=== PATIENT | female | born 1935 | race Caucasian/White ===

== ENCOUNTER 2018-01-02 11:37 | Observation (INO) | payer MEDICARE, OTHER ==
[~2018-01-02] VITALS: Ht 162.6 cm; Wt 61.3 kg
[2018-01-02 11:59] VITALS: BP 102/58; PULSE 70; RESP 22; TEMP 99.9; O2SAT 97
--- NOTE | 2018-01-02 12:52 | PD ---
HPI Chief Complaint: Syncope/Near-Syncope Time Seen by Provider: 12:31 Travel History International Travel<30 days: No Contact w/Intl Traveler<30days: No Traveled to known affect area: No History of Present Illness HPI 82-year-old female presents with her daughter for evaluation of syncopal event. The patient has dementia, is nonverbal and therefore the daughter provides the history. The patient was sitting on her couch this morning eating her breakfast when she passed out while sitting. There was no seizure activity. She reports that the patient has been coughing since then. The cough is nonproductive. Symptoms are moderate with no aggravating or relieving factors. She has otherwise been healthy with no recent illness. She has had no nonverbal complaints of pain that the daughter is aware of. She has had a normal energy level and a normal appetite. She has had no vomiting or diarrhea. The daughter reports history of dementia, bradycardia, past surgical history of cholecystectomy and hysterectomy. Dr. Kendrick is her primary care physician. She has no other complaints at this time. [facility] Past Medical History Narrative Medical Dementia, bradycardia Social History Alcohol Use: No Tobacco Use: No Substance Use: No Allergies-Medications (Allergen,Severity, Reaction): Coded Allergies: No Known Allergies (Unverified , 01/02/18) Review of Systems ROS Limitations: Other: (Dementia) Except as stated in HPI: all other systems reviewed are Neg Physical Exam Exam Limitations: Other: (Dementia, nonverbal) Narrative GENERAL: Pleasant well-developed well-nourished female in no acute distress. Rectal temperature is 100.2. SKIN: Warm and dry. HEAD: Atraumatic. Normocephalic. EYES: Pupils equal and round. No scleral icterus. No injection or drainage. ENT: No nasal bleeding or discharge. Mucous membranes pink and moist. NECK: Trachea midline. No JVD. CARDIOVASCULAR: Regular rate and rhythm. No murmur appreciated. RESPIRATORY: No accessory muscle use. Clear to auscultation. Breath sounds equal bilaterally. No crackles no wheezing. GASTROINTESTINAL: Abdomen soft, seems to grimace some with palpation of the lower abdomen without guarding. MUSCULOSKELETAL: No obvious deformities. No clubbing. No cyanosis. No edema. NEUROLOGICAL: Awake and alert. No obvious cranial nerve deficits. Motor grossly within normal limits. Data Data Last Documented VS Vital Signs Date Time Temp Pulse Resp B/P (MAP) Pulse Ox O2 Delivery O2 Flow Rate FiO2 01/02/18 11:59 99.9 70 22 102/58 (73) 97 Orders Orders Complete Blood Count With Diff (01/02/18 12:04) Comprehensive Metabolic Panel (01/02/18 12:04) Sepsis Workup Initiated (01/02/18 ) Lactic Acid Sepsis Protocol (01/02/18 12:48) Magnesium (Mg) (01/02/18 12:48) Lipase (01/02/18 12:48) Ckmb (Isoenzyme) Profile (01/02/18 12:48) Troponin I (01/02/18 12:48) Urinalysis - C+S If Indicated (01/02/18 12:48) Blood Culture (01/02/18 12:48) Chest, Single Ap (01/02/18 12:48) Ecg Monitoring (01/02/18 12:48) Iv Access Insert/Monitor (01/02/18 12:48) Oximetry (01/02/18 12:48) Oxygen Administration (01/02/18 12:48) Ct Abd/Pel W Iv Contrast(Rout) (01/02/18 12:48) Sodium Chlor 0.9% 1000 Ml Inj (Ns 1000 M (01/02/18 14:12) Electrocardiogram (01/02/18 13:34) Iohexol 350 Inj (Omnipaque 350 Inj) (01/02/18 17:15) Admit Order (Ed Use Only) (01/02/18 17:53) Labs Laboratory Tests Test 01/02/18 13:30 01/02/18 13:35 White Blood Count 9.3 TH/MM3 Red Blood Count 4.17 MIL/MM3 Hemoglobin 12.2 GM/DL Hematocrit 36.4 % Mean Corpuscular Volume 87.2 FL Mean Corpuscular Hemoglobin 29.4 PG Mean Corpuscular Hemoglobin Concent 33.7 % Red Cell Distribution Width 12.5 % Platelet Count 209 TH/MM3 Mean Platelet Volume 8.4 FL Neutrophils (%) (Auto) 63.9 % Lymphocytes (%) (Auto) 25.3 % Monocytes (%) (Auto) 9.8 % Eosinophils (%) (Auto) 0.5 % Basophils (%) (Auto) 0.5 % Neutrophils # (Auto) 6.0 TH/MM3 Lymphocytes # (Auto) 2.4 TH/MM3 Monocytes # (Auto) 0.9 TH/MM3 Eosinophils # (Auto) 0.0 TH/MM3 Basophils # (Auto) 0.0 TH/MM3 CBC Comment DIFF FINAL Differential Comment Blood Urea Nitrogen 13 MG/DL Creatinine 0.84 MG/DL Random Glucose 100 MG/DL Total Protein 6.7 GM/DL Albumin 3.3 GM/DL Calcium Level 8.3 MG/DL Alkaline Phosphatase 68 U/L Aspartate Amino Transf (AST/SGOT) 15 U/L Alanine Aminotransferase (ALT/SGPT) 21 U/L Total Bilirubin 0.2 MG/DL Sodium Level 142 MEQ/L Potassium Level 4.2 MEQ/L Chloride Level 109 MEQ/L Carbon Dioxide Level 26.9 MEQ/L Anion Gap 6 MEQ/L Estimat Glomerular Filtration Rate 65 ML/MIN Lactic Acid Level 1.1 mmol/L Magnesium Level 2.2 MG/DL Total Creatine Kinase 67 U/L Troponin I LESS THAN 0.02 NG/ML Lipase 127 U/L Urine Color YELLOW Urine Turbidity CLEAR Urine pH 5.5 Urine Specific [place] 1.008 Urine Protein NEG mg/dL Urine Glucose (UA) NEG mg/dL Urine Ketones NEG mg/dL Urine Occult Blood SMALL Urine Nitrite NEG Urine Bilirubin NEG Urine Urobilinogen LESS THAN 2.0 MG/DL Urine Leukocyte Esterase NEG Urine RBC LESS THAN 1 /hpf Urine WBC LESS THAN 1 /hpf Urine Squamous Epithelial Cells <1 /hpf Urine Mucus FEW /lpf Microscopic Urinalysis Comment CATH-CULT NOT IND MDM Medical Decision Making Medical Screen Exam Complete: Yes Emergency Medical Condition: Yes Medical Record Reviewed: Yes Differential Diagnosis Pneumonia, sepsis, UTI, syncope, hypoglycemia, electrolyte abnormality, arrhythmia, acute coronary syndrome, dehydration Narrative Course The patient was placed on ECG monitoring pulse oximetry. A 12-lead EKG was obtained. Lab work, chest x-ray, urinalysis, CT abdomen and pelvis have been ordered. ct abd pelvis 1. No acute abnormality. 2. Diverticulosis of the colon and duodenum. 3. Prior cholecystectomy. CBC is unremarkable. CMP is unremarkable. Magnesium is within normal limits. CK and troponin are within normal limits. Lactic acid is 1.1. Chest x-ray is normal. EKG reveals sinus rhythm. Urinalysis reveals small blood otherwise normal at this point time the plan is to admit the patient for observation overnight given her age, history of syncope. The patient's daughter is agreeable. Diagnosis Primary Impression: Syncope Admitting Information Admitting Physician Requests: Observation Jp Patel Jan 02, 2018 12:52
--- NOTE | 2018-01-02 13:23 | RADRPT ---
EXAM DATE: 01/02/2018 1:09 PM EDT AGE/SEX: 82 years / Female INDICATIONS: Passed out at home per her daughter. CLINICAL DATA: This is the patient's initial encounter. Patient reports that signs and symptoms have been present for 1 day and indicates a pain score of Nonresponsive. MEDICAL/SURGICAL HISTORY: . dementia None. COMPARISON: No prior exams available for comparison. FINDINGS: A single AP view of the chest demonstrates the lungs to be symmetrically aerated without evidence of mass, infiltrate or effusion. The cardiomediastinal contours are unremarkable. Osseous structures a re intact. CONCLUSION: No evidence of acute cardiopulmonary process. Electronically signed by: Jamari Majano MD 01/02/2018 1:22 PM EDT
[2018-01-02] MEDS ORDERED: SODIUM CHLOR 0.9% 1000 ML INJ 1,000 ML IV SCH (14:12)
[2018-01-02 14:34] LABS: BASOPHIL % 0.5 % (0.0-2.0); EOSINOPHIL % 0.5 % (0.0-4.0); HEMATOCRIT 36.4 % (35.0-46.0); HEMOGLOBIN 12.2 GM/DL (11.6-15.3); LYMPH % 25.3 % (9.0-44.0); LYMPHOCYTE # 2.4 TH/MM3 (1.0-4.8); MEAN CELL VOLUME 87.2 FL (80.0-100.0); MEAN CORPUSCULAR HEMOGLOBIN 29.4 PG (27.0-34.0); MEAN CORPUSCULAR HGB CONC 33.7 % (32.0-36.0); MEAN PLATELET VOLUME 8.4 FL (7.0-11.0); MONO % 9.8 % (0.0-8.0); MONOCYTE # 0.9 TH/MM3 (0-0.9); NEUT % 63.9 % (16.0-70.0); PLATELET COUNT 209 TH/MM3 (150-450); RED BLOOD COUNT 4.17 MIL/MM3 (4.00-5.30); RED CELL DISTRIBUTION WIDTH 12.5 % (11.6-17.2); WHITE BLOOD COUNT 9.3 TH/MM3 (4.0-11.0)
[2018-01-02 14:39] LABS: BILIRUBIN, URINE NEG (NEG); BLOOD, URINE SMALL (NEG); GLUCOSE,URINE NEG (NEG); KETONE, URINE NEG (NEG); MUCUS URINE FEW /lpf (OCC); NITRITE,URINE NEG (NEG); PH, URINE 5.5 (5.0-8.5); SQUAMOUS EPITHELIAL CELL URINE <1 /hpf (0-5); URINE COLOR YELLOW (YELLW/STRAW); URINE LEUKOCYTE ESTERASE NEG (NEG)
[2018-01-02 14:53] LABS: ALKALINE PHOSPHATASE 68 U/L (45-117); TOTAL BILIRUBIN ADULT 0.2 MG/DL (0.2-1.0); TOTAL PROTEIN 6.7 GM/DL (6.4-8.2); TROPONIN I LESS THAN 0.02 NG/ML (0.02-0.05)
[2018-01-02 15:56] LABS: ALBUMIN 3.3 GM/DL (3.4-5.0); ALT (GPT) 21 U/L (10-53); AST (GOT) 15 U/L (15-37); BICARBONATE 26.9 MEQ/L (21.0-32.0); BLOOD UREA NITROGEN 13 MG/DL (7-18); CALCIUM 8.3 MG/DL (8.5-10.1); CHLORIDE 109 MEQ/L (98-107); CREATININE 0.84 MG/DL (0.50-1.00); GLOMERULAR FILTRATION RATE 65 ML/MIN (>89); GLUCOSE,RANDOM 100 MG/DL (74-106); SODIUM (NA) 142 MEQ/L (136-145)
[2018-01-02 15:57] LABS: MAGNESIUM 2.2 MG/DL (1.5-2.5)
[2018-01-02] MEDS ORDERED: IOHEXOL 350 MG/ML 10 ML VIAL (for RAD DIAG) IVCONTRAST ONE (17:15)
--- NOTE | 2018-01-02 17:34 | RADRPT ---
EXAM DATE: 01/02/2018 5:10 PM EDT AGE/SEX: 82 years / Female INDICATIONS: Syncope, cough, fever. CLINICAL DATA: This is the patient's initial encounter. Patient reports that signs and symptoms have been present for 1 day and indicates a pain score of 0/10. MEDICAL/SURGICAL HISTORY: . Dementia. None. ORAL CONTRAST: No oral contrast ingested. RADIATION DOSE: 7.70 CTDI (mGy) COMPARISON: No prior exams available for comparison. TECHNIQUE: Multiple contiguous axial images were obtained through the abdomen and pelvis following b olus infusion of 85 ml Omnipaque 350 (iohexol) nonionic water-soluble contrast as a single exam dos e. No oral contrast ingested. Using automated exposure control and adjustment of the mA and/or kV ac cording to patient size, the radiation dose was kept as low as reasonably achievable to obtain optima l diagnostic quality images. FINDINGS: Lower Lungs: The visualized lower lungs are clear. Liver: The liver has a homogeneous density without space-occupying lesion. There is no dilation of th e biliary tree. The gallbladder surgically absent. Spleen: Homogeneous density without enlargement. Pancreas: Unremarkable without mass or calcification. Kidneys: Normal in size and shape. No evidence of mass or hydronephrosis. Adrenal Glands: Unremarkable. Aorta: The aorta and proximal iliac vessels are grossly unremarkable without aneurysmal dilation. Bowel/Mesentery: There is a very large duodenal diverticulum involving the second or third portion o f the duodenum. Numerous colonic diverticuli most pronounced within the sigmoid region. No acute infl ammation. The bowel loops are grossly unremarkable. The cecum and sigmoid colon have a normal configu ration. Abdominal Wall: Intact. Retroperitoneum: No evidence of adenopathy in the retrocrural, para-aortic, or deep pelvic regions. Bladder: Contours are smooth. Reproductive Organs: No abnormal masses or calcifications seen. Inguinal: The inguinal region is unremarkable without evidence of adenopathy. Bony Structures: Diffuse degenerative changes of the lumbar spine. A grade 1 anterolisthesis of L5 on S1. CONCLUSION: 1. No acute abnormality. 2. Diverticulosis of the colon and duodenum. 3. Prior cholecystectomy. Electronically signed by: Misael Montes MD 01/02/2018 5:33 PM EDT
--- NOTE | 2018-01-02 18:08 | HHI.HP ---
[facility] Service Family Medicine Primary Care Physician Unknown Admission Diagnosis Syncope Diagnoses: International Travel<30 Days: No Contact w/Intl Traveler<30days: No Known Affected Area: No History of Present Illness Patient is an 82 year old female who presents to the [facility] ED for evaluation of a syncopal episode with loss of consciousness x1. Patient has dementia and has been non-verbal for the past 5 years. She is cared for by her daughter, who is at bedside to provide the history. At approximately 9:40 a.m. today, the patient was eating breakfast on the couch. The daughter turned her back on the patient, heard the patient's plate drop to the floor, the daughter turned back around and found her mother laying on the couch slouched to the side. She then noted her mother's eyes rolling into the back of her head, followed by the patient "fainting." Per daughter, the patient lost consciousness for 2 minutes. When she woke up she seemed disoriented. Daughter denies seizure like activity such as shaking. She denies tongue biting. Patient has urinary and bowel incontinence at baseline but her diaper was soiled following episode. The patient also started coughing and has had little energy following the episode. The cough is non-productive. She usually "runs around the entire house" but today she just wanted to lay and rest. "She is just not acting herself." Patient has been shivering today. Her highest recorded temperature since arrival in ED is 99.9F. Daughter denies sick contacts. Of note, patient was diagnosed with dementia at 55 years old. She has been non- verbal for the past five years. She communicates via "her facial expressions." Patient eats "mushy food only." (Stormy Alvarado MD R1) Review of Systems ROS Limitations: Speech Impaired (Non-verbal; ROS per daughter ) Constitutional: COMPLAINS OF: Fatigue, Fever, Weight loss (30 lbs over the past year ), Chills, Dizziness, DENIES: Change in appetite Ears, nose, mouth, throat: DENIES: Nasal discharge, Throat pain, Running Nose Respiratory: COMPLAINS OF: Cough, Shortness of breath, DENIES: Sputum production Cardiovascular: DENIES: Chest pain, Palpitations Gastrointestinal: COMPLAINS OF: Constipation, DENIES: Abdominal pain, Black stools, Bloody stools, Diarrhea, Nausea, Vomiting Genitourinary: COMPLAINS OF: Urinary incontinence, DENIES: Abnormal vaginal bleeding Musculoskeletal: DENIES: Joint pain, Muscle aches Integumentary: DENIES: Rash Neurologic: DENIES: Headache Psychiatric: COMPLAINS OF: Agitation (Stormy Alvarado MD R1) Past Family Social History Past Medical History Bradycardia Dementia TIA/Stroke Past Surgical History Cholecystectomy Total hysterectomy Reported Medications None. (Stormy Alvarado MD R1) Allergies: Coded Allergies: No Known Allergies (Unverified , 01/02/18) Active Ordered Medications Current Medications Medications (Trade) Dose Ordered Sig/Pradeep Route Start Time Stop Time Status Last Admin Sodium Chloride 1,000 ml @ 100 mls/hr Q10H IV 01/02/18 19:12 UNV (Tylenol) 650 mg Q4H PRN PO 01/02/18 19:15 UNV (Lovenox Inj) 40 mg Q24H SQ 01/02/18 19:15 UNV (Tiffany-Colace) 1 tab BID PO 01/02/18 21:00 UNV (Milk Of Magnesia Liq) 30 ml Q12H PRN PO 01/02/18 19:15 UNV (Senokot) 17.2 mg Q12H PRN PO 01/02/18 19:15 UNV Family History Sister - Parkinson's, at 40 Sister - Brain aneurysm, in 40s Brothers (twins) - Blood cancers; at 23 Mother - breast cancer, in early 30s Social History Lives with daughter and great-niece. 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 Tobacco: 4 packs cigarettes/day; quit almost 30 years ago. Substance Use: Denies. (Stormy Alvarado MD R1) Physical Exam Vital Signs Vital Signs Date Time Temp Pulse Resp B/P (MAP) Pulse Ox O2 Delivery O2 Flow Rate FiO2 01/02/18 11:59 99.9 70 22 102/58 (73) 97 Physical Exam GENERAL: This is a well-nourished, well-developed patient, in no apparent distress. SKIN: No rashes, ecchymoses or lesions. Well healed scar over abdomen. Warm and dry. HEAD: Atraumatic. Normocephalic. No temporal or scalp tenderness. EYES: Pupils equal round and reactive. Extraocular motions intact. No scleral icterus. No injection or drainage. ENT: Nose without bleeding, purulent drainage or septal hematoma. Limited visualization of back of throat due to lack of cooperation. Uvula midline. Airway patent. NECK: Trachea midline. No JVD or lymphadenopathy. Supple, nontender, no meningeal signs. CARDIOVASCULAR: Regular rate and rhythm without murmurs, gallops, or rubs. RESPIRATORY: Clear to auscultation. Breath sounds equal bilaterally. No wheezes , rales, or rhonchi. GASTROINTESTINAL: Abdomen soft, non-tender, nondistended. No hepato-splenomegaly , or palpable masses. No guarding. MUSCULOSKELETAL: Extremities without clubbing, cyanosis, or edema. No joint tenderness, effusion, or edema noted. No calf tenderness. NEUROLOGICAL/PSYCH: Awake and alert. Agitated, patient constantly moving around , fidgety. Non-verbal. Facial expressions symmetrical. Non-cooperative for remaining neurological exam. Laboratory Laboratory Tests Test 01/02/18 13:30 01/02/18 13:35 White Blood Count 9.3 Red Blood Count 4.17 Hemoglobin 12.2 Hematocrit 36.4 Mean Corpuscular Volume 87.2 Mean Corpuscular Hemoglobin 29.4 Mean Corpuscular Hemoglobin Concent 33.7 Red Cell Distribution Width 12.5 Platelet Count 209 Mean Platelet Volume 8.4 Neutrophils (%) (Auto) 63.9 Lymphocytes (%) (Auto) 25.3 Monocytes (%) (Auto) 9.8 Eosinophils (%) (Auto) 0.5 Basophils (%) (Auto) 0.5 Neutrophils # (Auto) 6.0 Lymphocytes # (Auto) 2.4 Monocytes # (Auto) 0.9 Eosinophils # (Auto) 0.0 Basophils # (Auto) 0.0 CBC Comment DIFF FINAL Differential Comment Blood Urea Nitrogen 13 Creatinine 0.84 Random Glucose 100 Total Protein 6.7 Albumin 3.3 Calcium Level 8.3 Alkaline Phosphatase 68 Aspartate Amino Transf (AST/SGOT) 15 Alanine Aminotransferase (ALT/SGPT) 21 Total Bilirubin 0.2 Sodium Level 142 Potassium Level 4.2 Chloride Level 109 Carbon Dioxide Level 26.9 Anion Gap 6 Estimat Glomerular Filtration Rate 65 Lactic Acid Level 1.1 Magnesium Level 2.2 Total Creatine Kinase 67 Troponin I LESS THAN 0.02 Lipase 127 Urine Color YELLOW Urine Turbidity CLEAR Urine pH 5.5 Urine Specific [place] 1.008 Urine Protein NEG Urine Glucose (UA) NEG Urine Ketones NEG Urine Occult Blood SMALL Urine Nitrite NEG Urine Bilirubin NEG Urine Urobilinogen LESS THAN 2.0 Urine Leukocyte Esterase NEG Urine RBC LESS THAN 1 Urine WBC LESS THAN 1 Urine Squamous Epithelial Cells <1 Urine Mucus FEW Microscopic Urinalysis Comment CATH-CULT NOT IND Date/Time Source Procedure Growth Status 01/02/18 13:30 Blood Peripheral Aerobic Blood Culture Pending Received 01/02/18 13:30 Blood Peripheral Anaerobic Blood Culture Pending Received (Stormy Alvarado MD R1) Result Diagram: 01/02/18 1330 01/02/18 1330 Imaging Last Impressions Chest X-Ray 01/02/18 1248 Signed Impressions: CONCLUSION: No evidence of acute cardiopulmonary process. Abdomen/Pelvis CT 01/02/18 1248 Signed Impressions: Bony Structures: Diffuse degenerative changes of the lumbar spine. A grade 1 an terolisthesis of L5 on S1. CONCLUSION: 1. No acute abnormality. 2. Diverticulosis of the colon and duodenum. 3. Prior cholecystectomy. (Stormy Alvarado MD R1) Caprini VTE Risk Assessment Caprini VTE Risk Assessment: Mod/High Risk (score >= 2) Caprini Risk Assessment Model Point Value = 1 Point Value = 2 Point Value = 3 Point Value = 5 Age 41-60 Minor surgery BMI > 25 kg/m2 Swollen legs Varicose veins or History of unexplained or recurrent spontaneous Oral contraceptives or hormone replacement Sepsis (< 1 month) Serious lung disease, including pneumonia (< 1 month) Abnormal pulmonary function Acute myocardial infarction Congestive heart failure (< 1 month) History of inflammatory bowel disease Medical patient at bed rest Age 61-74 Arthroscopic surgery Major open surgery (> 45 min) Laparoscopic surgery (> 45 min) Malignancy Confined to bed (> 72 hours) Immobilizing plaster cast Central venous access Age >= 75 History of VTE Family history of VTE Factor V Leiden Prothrombin [id number] Lupus anticoagulant Anticardiolipin antibodies Elevated serum homocysteine Heparin-induced thrombocytopenia Other congenital or acquired thrombophilia Stroke (< 1 month) Elective arthroplasty Hip, pelvis, or leg fracture Acute spinal cord injury (< 1 month) Prophylaxis Regimen Total Risk Factor Score Risk Level Prophylaxis Regimen 0-1 Low Early ambulation 2 Moderate Order ONE of the following: *Sequential Compression Device (SCD) *Heparin 5000 units SQ BID 3-4 Higher Order ONE of the following medications: *Heparin 5000 units SQ TID *Enoxaparin/Lovenox 40 mg SQ daily (WT < 150 kg, CrCl > 30 mL/min) *Enoxaparin/Lovenox 30 mg SQ daily (WT < 150 kg, CrCl > 10-29 mL/min) *Enoxaparin/Lovenox 30 mg SQ BID (WT < 150 kg, CrCl > 30 mL/min) AND/OR *Sequential Compression Device (SCD) 5 or more Highest Order ONE of the following medications: *Heparin 5000 units SQ TID (Preferred with Epidurals) *Enoxaparin/Lovenox 40 mg SQ daily (WT < 150 kg, CrCl > 30 mL/min) *Enoxaparin/Lovenox 30 mg SQ daily (WT < 150 kg, CrCl > 10-29 mL/min) *Enoxaparin/Lovenox 30 mg SQ BID (WT < 150 kg, CrCl > 30 mL/min) AND *Sequential Compression Device (SCD) (Stormy Alvarado MD R1) Assessment and Plan Assessment and Plan Patient is an 82 year old female who presents to the [facility] ED for evaluation of a syncopal episode with loss of consciousness x1. Patient has dementia and has been non-verbal for the past 5 years. Code Status Full Code. Patient unable to make her own decisions. Daughter at bedside is not eldest child, nor does she have power of assistant district attorney. Discussed Condition With GERRY Avalos. Dr. Delaney (Stormy Alvarado MD R1) Problem List: (1) Syncope ICD Codes: R55 - Syncope and collapse Status: Acute Plan: Patient with syncopal episode and LOC today. No history of syncopal episodes. No seizure activity. Differential Diagnosis: * Vaso-vagal versus TIA versus CVA versus seizure Admission Labs: * CBC wnl. * CMP grossly wnl. * Troponin x1 negative. Imaging: * Head CT pending. * MRI Brain pending. * MRA Brain pending. * Carotid US pending. * Chest CXR 01/02: No evidence of acute cardiopulmonary process. * Abdomen/Pelvis CT: No acute abnormality. Diverticulosis of the colon and duodenum. Prior cholecystectomy. Studies: * EKG: Sinus rhythm. * EEG pending. Orders: * Orthostatic blood pressure. * Telemetry. * Vital and Neuro checks q4hrs. Medications: * NS at 100 ml/hr. (2) Dementia ICD Codes: F03.90 - Unspecified dementia without behavioral disturbance Status: Chronic Plan: Patient with history of dementia. She has been non-verbal for the past 5 years. Patient on no home medications. (3) Fluid, Electrolyte, Nutrition and Prophylaxis Status: Acute Plan: Fluid: * NS at 100 ml/hr. Electrolyte: * Monitor and replete as necessary. Nutrition: * NPO pending swallow evaluation. Prophylaxis: * SCDs. * Hold chemical prophylaxis until CT brain results available. (Stormy Alvarado MD R1) Problem List: (1) Syncope ICD Codes: R55 - Syncope and collapse Status: Acute Plan: Patient with syncopal episode and LOC today. No history of syncopal episodes. No seizure activity. Differential Diagnosis: * Vaso-vagal versus TIA versus CVA versus seizure Admission Labs: * CBC wnl. * CMP grossly wnl. * Troponin x1 negative. Imaging: * Head CT pending. * MRI Brain pending. * MRA Brain pending. * Carotid US pending. * Chest CXR 01/02: No evidence of acute cardiopulmonary process. * Abdomen/Pelvis CT: No acute abnormality. Diverticulosis of the colon and duodenum. Prior cholecystectomy. Studies: * EKG: Sinus rhythm. * EEG pending. Orders: * Orthostatic blood pressure. * Telemetry. * Vital and Neuro checks q4hrs. Medications: * NS at 100 ml/hr. (2) Dementia ICD Codes: F03.90 - Unspecified dementia without behavioral disturbance Status: Chronic Plan: Patient with history of dementia. She has been non-verbal for the past 5 years. Patient on no home medications. (3) Fluid, Electrolyte, Nutrition and Prophylaxis Status: Acute Plan: Fluid: * NS at 100 ml/hr. Electrolyte: * Monitor and replete as necessary. Nutrition: * NPO pending swallow evaluation. Prophylaxis: * SCDs. * Hold chemical prophylaxis until CT brain results available. See the residents documentation for details. I saw and evaluated the patient regarding the martinez portions of this evaluation and agree with the residents findings and plans as written. Parts of this note were created using [employer] voice recognition software program. While efforts were made to correct any mistakes made by this software, some mistakes, errors, and omissions may remain in the final note that were not caught when the note was originally created. Plan of care was discussed and agreed upon with the patient as specifically documented in the above note. An opportunity to ask questions with explanation was provided. Patient voiced understanding on all information reviewed and discussed. (Arcenio Ignaico MD) Stormy Alvarado MD R1 Jan 02, 2018 18:08 Arcenio Ignacio MD Jan 04, 2018 11:49
[2018-01-02] MEDS ORDERED: MAGNESIUM HYDROXIDE SUSP 30 ML CUP PO PRN (19:15)
[2018-01-02] MEDS ORDERED: SENNOSIDES 8.6 MG TAB PO PRN (19:15)
[2018-01-02] MEDS ORDERED: ACETAMINOPHEN 325 MG TAB PO PRN (19:15)
[2018-01-02 20:00] VITALS: BP 123/68; PULSE 77; PULSE 78; RESP 18; TEMP 97.8; O2SAT 97
[2018-01-02] MEDS: DOCUSATE SODIUM 50 MG/SENNA 8.6 MG TAB PO SCH (21:00)
[2018-01-02] MEDS ORDERED: ENOXAPARIN SODIUM 40 MG/0.4 ML SYRINGE SQ SCH (21:00)
[2018-01-02] MEDS: SODIUM CHLOR 0.9% 1000 ML INJ 1,000 ML IV SCH (22:08)
--- NOTE | 2018-01-02 23:18 | RADRPT ---
EXAM DATE: 01/02/2018 11:06 PM EDT AGE/SEX: 82 years / Female INDICATIONS: Syncope. CLINICAL DATA: This is the patient's initial encounter. Patient reports that signs and symptoms have been present for 1 day and indicates a pain score of 0/10. MEDICAL/SURGICAL HISTORY: . Dementia. Syncope. Blood transfusions. Cholecystectomy. Hysterec susan. COMPARISON: No prior exams available for comparison. VELOCITY PARAMETERS: ICA/CCA Ratio: Right 0.7 , Left 1.1 ICA: Right 54 cm/sec, Left 65 cm/sec CCA: Right 76 cm/sec, Left 58 cm/sec ECA: Right 57 cm/sec, Left 69 cm/sec Vertebral: Right 47 cm/sec antegrade, Left 49 cm/sec antegrade FINDINGS: Right Carotid: No significant stenosis is visualized. The waveforms are within normal limits. Left Carotid: No significant stenosis is visualized. The waveforms are within normal limits. Other: None. CONCLUSION: 1. Right Internal Carotid Artery: No evidence of hemodynamically significant stenosis. 2. Left Internal Carotid Artery: No evidence of hemodynamically significant stenosis. Electronically signed by: Luis Henley MD 01/02/2018 11:17 PM EDT
[2018-01-02 23:38] VITALS: O2SAT 96
[2018-01-03] VITALS (11 sets, daily range): BP systolic 107–132; BP diastolic 51–62; PULSE 63–80; RESP 18–20; TEMP 97.8–98.9; O2SAT 95–98
--- NOTE | 2018-01-03 02:11 | RADRPT ---
EXAM DATE: 01/03/2018 2:03 AM EDT AGE/SEX: 82 years / Female INDICATIONS: Syncope. CLINICAL DATA: This is the patient's initial encounter. Patient reports that signs and symptoms have been present for 1 day and indicates a pain score of Nonresponsive. MEDICAL/SURGICAL HISTORY: . Dementia Hysterectomy. RADIATION DOSE: 56.35 CTDI (mGy) ; Patient motion COMPARISON: No prior exams available for comparison. TECHNIQUE: CT of the head without contrast. Using automated exposure control and adjustment of the mA and/or kV according to patient size, radiation dose was kept as low as reasonably achievable to ob tain optimal diagnostic quality images. FINDINGS: Cerebrum: Diffuse prominence of ventricles, sulci, and cisterns indicating severe frontotemporal atr ophy. No evidence of midline shift, mass lesion, hemorrhage or acute infarction. No extraaxial flui d collections are seen. Posterior Fossa: The cerebellum and brainstem are intact. The 4th ventricle is midline. The cerebe llopontine angle is unremarkable. Extracranial: Moderate severity bilateral ethmoid sinus partial opacification. Mild maxillary sinus mucosal thickening. Skull: The calvaria is intact. No evidence of skull fracture. CONCLUSION: 1. Severe atrophy. No acute intracranial findings. 2. Ethmoid and maxillary sinus disease. Electronically signed by: Luis Henley MD 01/03/2018 2:10 AM EDT
[2018-01-03 06:57] LABS: BICARBONATE 19.1 MEQ/L (21.0-32.0); CALCIUM 8.2 MG/DL (8.5-10.1); CREATININE 0.69 MG/DL (0.50-1.00)
[2018-01-03 07:14] LABS: AUTOMATED NEUTROPHIL # 6.8 TH/MM3 (1.8-7.7); BASOPHIL % 0.4 % (0.0-2.0); EOSINOPHIL # 0.1 TH/MM3 (0-0.4); EOSINOPHIL % 0.5 % (0.0-4.0); HEMATOCRIT 38.4 % (35.0-46.0); HEMOGLOBIN 12.9 GM/DL (11.6-15.3); LYMPH % 22.7 % (9.0-44.0); LYMPHOCYTE # 2.4 TH/MM3 (1.0-4.8); MEAN CELL VOLUME 86.9 FL (80.0-100.0); MEAN CORPUSCULAR HEMOGLOBIN 29.1 PG (27.0-34.0); MEAN CORPUSCULAR HGB CONC 33.5 % (32.0-36.0); MEAN PLATELET VOLUME 8.6 FL (7.0-11.0); MONO % 11.7 % (0.0-8.0); MONOCYTE # 1.2 TH/MM3 (0-0.9); NEUT % 64.7 % (16.0-70.0); PLATELET COUNT 203 TH/MM3 (150-450); RED BLOOD COUNT 4.42 MIL/MM3 (4.00-5.30); RED CELL DISTRIBUTION WIDTH 12.3 % (11.6-17.2); WHITE BLOOD COUNT 10.5 TH/MM3 (4.0-11.0)
[2018-01-03] MEDS: DOCUSATE SODIUM 50 MG/SENNA 8.6 MG TAB PO SCH ×2 (09:00→21:00)
--- NOTE | 2018-01-03 09:34 | EKG ---
Date Performed: 01/02/2018 Time Performed: 13:34:37 PTAGE: 82 years EKG: Sinus rhythm NORMAL ECG NO PREVIOUS TRACING DOCTOR: Shan Adams Interpretating Date/Time 01/03/2018 09:32:42
[2018-01-03 10:45] LABS: ACETAMINOPHEN LESS THAN 2.0 MCG/ML (10.0-30.0)
[2018-01-03] MEDS ORDERED: GADODIAMIDE PF 287 MG/ML 5 ML VIAL (for RAD MRI) IVCONTRAST ONE (11:56)
--- NOTE | 2018-01-03 11:58 | RADRPT ---
EXAM DATE: 01/03/2018 11:49 AM EDT AGE/SEX: 82 years / Female INDICATIONS: Altered mental status. Syncope. CLINICAL DATA: This is the patient's subsequent encounter. Patient reports that signs and symptoms h ave been present for 2 days and indicates a pain score of Nonresponsive. MEDICAL/SURGICAL HISTORY: . TIA, Stroke Hysterectomy. Cholecystectomy. COMPARISON: No prior exams available for comparison. TECHNIQUE: 3D [id number] MRA was performed. Source images, multiplanar STS MIP, and 3D volum e MIP reconstructions were reviewed. FINDINGS: There is excellent visualization of the major intracranial arteries out to the second-order branch ve ssels. There is no evidence for aneurysm, vessel truncation or stenosis, and no evidence for vascula r malformation. CONCLUSION: 1. Negative for aneurysm or major branch vessel occlusion. There is poor visualization of the distal MCA branches on the right. Not sure this is artifactual or pathological. Electronically signed by: Nelson Post MD 01/03/2018 11:57 AM EDT
--- NOTE | 2018-01-03 12:25 | RADRPT ---
EXAM DATE: 01/03/2018 12:07 PM EDT AGE/SEX: 82 years / Female INDICATIONS: Altered mental status. Syncope. CLINICAL DATA: This is the patient's subsequent encounter. Patient reports that signs and symptoms h ave been present for 2 days and indicates a pain score of Nonresponsive. MEDICAL/SURGICAL HISTORY: . TIA, stroke, dementia Cholecystectomy. Hysterectomy. COMPARISON: No prior exams available for comparison. TECHNIQUE: Multiplanar, multisequence examination of the brain was performed without and with 12 ml O mniscan (gadodiamide) contrast as a single exam dose. FINDINGS: There is severe cortical atrophy and moderate chronic white matter ischemic changes. No recent infarc t identified on the diffusion weighted images. No mass effect or shift. No hydrocephalus. No sellar m ass. CONCLUSION: 1. Severe cortical atrophy with moderate white matter ischemic changes. No recent infarct. 2. Incidental note made of 1.2 cm circumscribed nodule in the left parotid gland Electronically signed by: Wyatt Mcbride MD 01/03/2018 12:23 PM EDT
[2018-01-03] MEDS: SODIUM CHLOR 0.9% 1000 ML INJ 1,000 ML IV SCH ×2 (12:29→15:12)
--- NOTE | 2018-01-03 16:15 | MB ---
cc: Gabbi Moscoso MD DATE: 01/03/2018 DATE OF : 1935 AGE: [age] years old. REASON FOR CONSULTATION: Syncope. HISTORY OF PRESENT ILLNESS: This is an 82-year-old woman with advanced dementia who started at age 55, nonverbal since 5 years ago. Apparently today was eating breakfast and had syncope. Her daughter states she was not shaking or tongue biting. That lasted maybe 2 minutes, somewhat disoriented afterwards, but difficult to know how she is disoriented as she does not talk. She has incontinence at baseline. She states that her mother just looks drained, does not look like herself currently. She had a low-grade temperature of 99.9. No medications on board. PAST MEDICAL HISTORY: Bradycardia, dementia, TIA, questionable stroke in the past. PAST SURGICAL HISTORY: Cholecystectomy, hysterectomy. MEDICINES AT HOME: NONE KNOWN. ALLERGIES: NONE REPORTED. PHYSICAL EXAMINATION: GENERAL: She is an elderly woman sitting at the edge of the bed, drinking a smoothie-like substance, using a straw, holding the cup herself. VITAL SIGNS: Vitals are stable. Heart rate in the 60s, temperature 98.9, BP 112/51. NEUROLOGICAL EXAMINATION: Pupils are reactive. Her face looks fairly symmetrical. She looks at examiner. She does not follow any commands, but seems to be moving arms and legs equally. Gait is withheld. LABORATORY DATA: Reviewed. CBC is really unremarkable. Chemistries: Her CO2 is 19.1, GFR 82, glucose 64, calcium 8.2. Cardiac enzymes were normal. Albumin 3.3. Lipase 127. Tox screen: Acetaminophen, ethanol, salicylates were unremarkable. Urine: Small blood, but no culture indicated. Blood cultures are negative so far. IMAGING STUDIES: MRI of the brain shows severe atrophy with moderate white matter changes and a left parotid nodule, but nothing acute. MRA round [place]: Poor visualization of the distal MCA branches on the right, not sure if this is true or not. Abdomen and pelvis CT: Degenerative changes of the spine. No diverticulosis of the colon or duodenum. Carotid ultrasound: No stenosis. Chest x-ray: Nothing acute. 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 PLAN: Certainly rule out cardiac cause. An echo is still pending. An EEG was just completed. Monitor her on telemetry and watch for any seizures and, if the workup is unremarkable, discharge planning. I would not put her on any antiseizure medicine at this point in time unless we have evidence that this is truly a seizure-like event, which at this point is not sounding like that. Continue current recommendations. Consider putting her on a baby aspirin. MD BERNARD Barraza/JACK , 02:40 PM , 03:05 PM
--- NOTE | 2018-01-03 16:46 | HHI.FPPN ---
Subjective Remarks Patient was seen and evaluated this morning. No events reported overnight by nursing staff. Daughter at bedside. She reports that her mom continues to cough but denies any additional syncopal events. All questions were answered. (Stormy Alvarado MD R1) Objective Vitals Vital Signs Date Time Temp Pulse Resp B/P (MAP) Pulse Ox O2 Delivery O2 Flow Rate FiO2 01/03/18 12:05 98.9 63 19 112/51 (71) 98 01/03/18 11:36 98 01/03/18 08:05 98.9 65 19 121/60 (80) 98 01/03/18 08:00 Room Air 01/03/18 08:00 71 01/03/18 04:00 Room Air 01/03/18 04:00 98.3 70 18 107/55 (72) 98 01/03/18 04:00 69 01/03/18 00:00 98.5 67 20 122/57 (78) 95 01/03/18 00:00 71 01/03/18 00:00 Room Air 01/02/18 23:38 96 01/02/18 20:00 Room Air 01/02/18 20:00 97.8 78 18 123/68 (86) 97 01/02/18 20:00 77 I/O 01/02/18 01/02/18 01/02/18 01/03/18 01/03/18 01/03/18 07:00 15:00 23:00 07:00 15:00 23:00 Intake Total 1000 ml Balance 1000 ml Intake IV Total 1000 ml (Stormy Alvarado MD R1) Result Diagram: 01/03/18 0412 01/03/18 0420 Imaging Last Impressions Head CT 01/03/18 0120 Signed Impressions: CONCLUSION: 1. Severe atrophy. No acute intracranial findings. 2. Ethmoid and maxillary sinus disease. Head Magnetic Resonance Angiography 01/03/18 0000 Signed Impressions: CONCLUSION: 1. Negative for aneurysm or major branch vessel occlusion. There is poor visua lization of the distal MCA branches on the right. Not sure this is artifactual or pathological. Brain MRI 01/03/18 0000 Signed Impressions: CONCLUSION: 1. Severe cortical atrophy with moderate white matter ischemic changes. No rec ent infarct. 2. Incidental note made of 1.2 cm circumscribed nodule in the left parotid gla nd Chest X-Ray 01/02/18 1248 Signed Impressions: CONCLUSION: No evidence of acute cardiopulmonary process. Abdomen/Pelvis CT 01/02/18 1248 Signed Impressions: Bony Structures: Diffuse degenerative changes of the lumbar spine. A grade 1 an terolisthesis of L5 on S1. CONCLUSION: 1. No acute abnormality. 2. Diverticulosis of the colon and duodenum. 3. Prior cholecystectomy. Carotid Artery Ultrasound 01/02/18 0000 Signed Impressions: CONCLUSION: 1. Right Internal Carotid Artery: No evidence of hemodynamically significant s tenosis. 2. Left Internal Carotid Artery: No evidence of hemodynamically significant st enosis. Objective Remarks GENERAL: This is a well-nourished, well-developed patient, in no apparent distress. SKIN: No rashes, ecchymoses or lesions. Well healed scar over abdomen. Warm and dry. HEAD: Atraumatic. Normocephalic. EYES: Pupils equal round. Extraocular motions intact. No scleral icterus. No injection or drainage. ENT: Nose without bleeding, purulent drainage or septal hematoma. Airway patent. NECK: Trachea midline. No JVD or lymphadenopathy. Supple. CARDIOVASCULAR: Regular rate and rhythm without murmurs, gallops, or rubs. RESPIRATORY: Clear to auscultation. Breath sounds equal bilaterally. No wheezes , rales, or rhonchi. GASTROINTESTINAL: Abdomen soft, non-tender, nondistended. No hepato-splenomegaly , or palpable masses. No guarding. MUSCULOSKELETAL: Extremities without clubbing, cyanosis, or edema. No joint tenderness, effusion, or edema noted. No calf tenderness. NEUROLOGICAL/PSYCH: Awake and alert. Non-verbal. Facial expressions symmetrical. Non-cooperative for remaining neurological exam. Medications and IVs Current Medications Medications (Trade) Dose Ordered Sig/Pradeep Route Start Time Stop Time Status Last Admin Sodium Chloride 1,000 ml @ 100 mls/hr Q10H IV 01/02/18 19:12 01/03/18 12:29 (Tylenol) 650 mg Q4H PRN PO 01/02/18 19:15 (Tiffany-Colace) 1 tab BID PO 01/02/18 21:00 (Milk Of Magnesia Liq) 30 ml Q12H PRN PO 01/02/18 19:15 (Senokot) 17.2 mg Q12H PRN PO 01/02/18 19:15 (Stormy Alvarado MD R1) Urinary Catheter: No (Stormy Alvarado MD R1) Vascular Central Line Catheter: No (Stormy Alvarado MD R1) A/P Assessment and Plan Patient is an 82 year old female who presents to the [place] ED for evaluation of a syncopal episode with loss of consciousness x1. Patient has dementia and has been non-verbal for the past 5 years. Discharge Planning Pending work-up. (Stormy Alvarado MD R1) Problem List: (1) Syncope ICD Codes: R55 - Syncope and collapse Status: Acute Plan: Patient with syncopal episode and LOC today. No history of syncopal episodes. No seizure activity. Differential Diagnosis: * Vaso-vagal versus TIA versus CVA versus seizure Admission Labs: * CBC wnl. * CMP grossly wnl. * Troponin x1 negative. Labs 01/03: * CBC wnl. * CMP grossly wnl. * Salicylates less than 1.7. * Acetaminophen less than 2.0. * Ethyl Alcohol less than 3. Imaging: * Head CT 01/03: Severe atrophy. No acute intracranial findings. Ethmoid and maxillary sinus disease. * MRI Brain 01/03: Severe cortical atrophy with moderate white matter ischemic changes. No recent infarct. Incidental note made of 1.2 cm circumscribed nodule in the left parotid gland. * MRA Brain 01/03: Negative for aneurysm or major branch vessel occlusion. There is poor visualization of the distal MCA branches on the right. Not sure this is artifactual or pathological. * Carotid US 01/02: Right Internal Carotid Artery: No evidence of hemodynamically significant stenosis. Left Internal Carotid Artery: No evidence of hemodynamically significant stenosis. * Chest CXR 01/02: No evidence of acute cardiopulmonary process. * Abdomen/Pelvis CT: No acute abnormality. Diverticulosis of the colon and duodenum. Prior cholecystectomy. Studies: * EKG: Sinus rhythm. * ECHO pending. * EEG pending. Orders: * Orthostatic blood pressure. * Telemetry. * Vital and Neuro checks q4hrs. Consults: * Neurology: Certainly rule out cardiac cause. An echo is still pending. An EEG was just completed. Monitor her on telemetry and watch for any seizures and , if the workup is unremarkable, discharge planning. I would not put her on any antiseizure medicine at this point in time unless we have evidence that this is truly a seizure-like event, which at this point is not sounding like that. Continue current recommendations. Consider putting her on a baby aspirin. Medications: * NS at 100 ml/hr. (2) Dementia ICD Codes: F03.90 - Unspecified dementia without behavioral disturbance Status: Chronic Plan: Patient with history of dementia. She has been non-verbal for the past 5 years. Patient on no home medications. (3) Fluid, Electrolyte, Nutrition and Prophylaxis Status: Acute Plan: Fluid: * NS at 100 ml/hr. Electrolyte: * Monitor and replete as necessary. Nutrition: * Heart Healthy Diet: Pureed, nectar thick, lactose free as per Speech. Prophylaxis: * SCDs. (Stormy Alvarado MD R1) Problem List: (1) Syncope ICD Codes: R55 - Syncope and collapse Status: Acute Plan: Patient with syncopal episode and LOC today. No history of syncopal episodes. No seizure activity. Differential Diagnosis: * Vaso-vagal versus TIA versus CVA versus seizure Admission Labs: * CBC wnl. * CMP grossly wnl. * Troponin x1 negative. Labs 01/03: * CBC wnl. * CMP grossly wnl. * Salicylates less than 1.7. * Acetaminophen less than 2.0. * Ethyl Alcohol less than 3. Imaging: * Head CT 01/03: Severe atrophy. No acute intracranial findings. Ethmoid and maxillary sinus disease. * MRI Brain 01/03: Severe cortical atrophy with moderate white matter ischemic changes. No recent infarct. Incidental note made of 1.2 cm circumscribed nodule in the left parotid gland. * MRA Brain 01/03: Negative for aneurysm or major branch vessel occlusion. There is poor visualization of the distal MCA branches on the right. Not sure this is artifactual or pathological. * Carotid US 01/02: Right Internal Carotid Artery: No evidence of hemodynamically significant stenosis. Left Internal Carotid Artery: No evidence of hemodynamically significant stenosis. * Chest CXR 01/02: No evidence of acute cardiopulmonary process. * Abdomen/Pelvis CT: No acute abnormality. Diverticulosis of the colon and duodenum. Prior cholecystectomy. Studies: * EKG: Sinus rhythm. * ECHO pending. * EEG pending. Orders: * Orthostatic blood pressure. * Telemetry. * Vital and Neuro checks q4hrs. Consults: * Neurology: Certainly rule out cardiac cause. An echo is still pending. An EEG was just completed. Monitor her on telemetry and watch for any seizures and , if the workup is unremarkable, discharge planning. I would not put her on any antiseizure medicine at this point in time unless we have evidence that this is truly a seizure-like event, which at this point is not sounding like that. Continue current recommendations. Consider putting her on a baby aspirin. Medications: * NS at 100 ml/hr. (2) Dementia ICD Codes: F03.90 - Unspecified dementia without behavioral disturbance Status: Chronic Plan: Patient with history of dementia. She has been non-verbal for the past 5 years. Patient on no home medications. (3) Fluid, Electrolyte, Nutrition and Prophylaxis Status: Acute Plan: Fluid: * NS at 100 ml/hr. Electrolyte: * Monitor and replete as necessary. Nutrition: * Heart Healthy Diet: Pureed, nectar thick, lactose free as per Speech. Prophylaxis: * SCDs. See the residents documentation for details. I saw and evaluated the patient regarding the martinez portions of this evaluation and agree with the residents findings and plans as written. Parts of this note were created using [employer] voice recognition software program. While efforts were made to correct any mistakes made by this software, some mistakes, errors, and omissions may remain in the final note that were not caught when the note was originally created. Plan of care was discussed and agreed upon with the patient as specifically documented in the above note. An opportunity to ask questions with explanation was provided. Patient voiced understanding on all information reviewed and discussed. (Arcenio Ignacio MD) Stormy Alvarado MD R1 Jan 03, 2018 16:46 Arcenio Ignacio MD Jan 04, 2018 12:04
--- NOTE | 2018-01-03 21:46 | MG ---
cc: Esteban Berry MD, Mandeep MD EEG NUMBER [id number] 7-9 Hz posterior dominant rhythm, 10-30 microvolts. Significant left frontotemporal myogenic artifact. Generalized slowing transition into drowsy state followed by stage I sleep. Focal slowing, tiny sharp transient noted P3, epoch 26. Good EEG variability reactivity. Stage II spindles noted as well. Limited driving with photic stimulation. Tiny sharp transient F3 epoch 118. Single lead EKG showing sinus rhythm. INTERPRETATION: Overall normal appearing, awake, sleep electroencephalogram. Could consider extended electroencephalogram monitoring. Clinical correlation. MD TANMAY Garner/ , 09:20 PM , 09:44 PM
[2018-01-04] VITALS (7 sets, daily range): BP systolic 102–126; BP diastolic 53–72; PULSE 63–77; RESP 16–18; TEMP 97.3–98.2; O2SAT 94–100
[2018-01-04] MEDS: SODIUM CHLOR 0.9% 1000 ML INJ 1,000 ML IV SCH ×3 (01:12→02:39)
[2018-01-04 05:45] LABS: HEMATOCRIT 35.1 % (35.0-46.0); HEMOGLOBIN 11.7 GM/DL (11.6-15.3); MEAN CELL VOLUME 86.7 FL (80.0-100.0); MEAN CORPUSCULAR HGB CONC 33.5 % (32.0-36.0); MEAN PLATELET VOLUME 8.3 FL (7.0-11.0); PLATELET COUNT 221 TH/MM3 (150-450); RED BLOOD COUNT 4.05 MIL/MM3 (4.00-5.30); RED CELL DISTRIBUTION WIDTH 12.5 % (11.6-17.2)
[2018-01-04 06:13] LABS: BICARBONATE 21.5 MEQ/L (21.0-32.0); CALCIUM 8.3 MG/DL (8.5-10.1); CREATININE 0.73 MG/DL (0.50-1.00)
--- NOTE | 2018-01-04 07:17 | HHI.DCPOC ---
Discharge Care Plan Diagnosis: (1) Dementia (2) Syncope Goals to Promote Your Health * To prevent worsening of your condition and complications * To maintain your health at the optimal level Directions to Meet Your Goals Take your medications as prescribed Follow your dietary instruction Follow activity as directed Keep your appointments as scheduled Take your immunizations and boosters as scheduled If your symptoms worsen call your PCP, if no PCP go to Urgent Care Center or Emergency Room Smoking is Dangerous to Your Health. Avoid second hand smoke Call the 24-hour hour crisis hotline for domestic abuse at Jourdan Delaney MD R2 Jan 04, 2018 07:17
[2018-01-04] MEDS: DOCUSATE SODIUM 50 MG/SENNA 8.6 MG TAB PO SCH (08:07)
--- NOTE | 2018-01-04 11:04 | HHI.FPPN ---
Subjective Remarks Patient was seen and evaluated this morning. No events reported overnight. Daughter at bedside. She reports that her mom continues to cough but denies any additional syncopal events. Per daughter, patient acting more like herself. She feels comfortable taking her mother home today. All questions were answered. (Stormy Alvarado MD R1) Objective Vitals Vital Signs Date Time Temp Pulse Resp B/P (MAP) Pulse Ox O2 Delivery O2 Flow Rate FiO2 01/04/18 08:06 98.2 71 17 122/53 (76) 95 01/04/18 08:00 Room Air 01/04/18 08:00 63 01/04/18 05:22 97.9 77 18 102/55 (71) 94 01/04/18 03:54 67 01/04/18 00:00 98.1 74 16 122/70 (87) 100 01/03/18 23:56 68 01/03/18 20:01 Room Air 01/03/18 20:01 97.8 75 18 132/61 (84) 97 01/03/18 19:58 80 01/03/18 16:05 98.8 64 19 120/62 (81) 98 01/03/18 16:00 70 01/03/18 12:05 98.9 63 19 112/51 (71) 98 01/03/18 11:36 98 I/O 01/03/18 01/03/18 01/03/18 01/04/18 01/04/18 01/04/18 07:00 15:00 23:00 07:00 15:00 23:00 Intake Total 360 ml 1011 ml Output Total 1000 ml Balance -640 ml 1011 ml Intake Oral 360 ml 240 ml IV Total 771 ml Output Urine Total 1000 ml # Voids 3 # Bowel Movements 2 0 (Stormy Alvarado MD R1) Result Diagram: 01/04/18 0437 01/04/18 0437 Imaging Last Impressions Head CT 01/03/18 0120 Signed Impressions: CONCLUSION: 1. Severe atrophy. No acute intracranial findings. 2. Ethmoid and maxillary sinus disease. Head Magnetic Resonance Angiography 01/03/18 0000 Signed Impressions: CONCLUSION: 1. Negative for aneurysm or major branch vessel occlusion. There is poor visua lization of the distal MCA branches on the right. Not sure this is artifactual or pathological. Brain MRI 01/03/18 0000 Signed Impressions: CONCLUSION: 1. Severe cortical atrophy with moderate white matter ischemic changes. No rec ent infarct. 2. Incidental note made of 1.2 cm circumscribed nodule in the left parotid gla nd Chest X-Ray 01/02/18 1248 Signed Impressions: CONCLUSION: No evidence of acute cardiopulmonary process. Abdomen/Pelvis CT 01/02/18 1248 Signed Impressions: Bony Structures: Diffuse degenerative changes of the lumbar spine. A grade 1 an terolisthesis of L5 on S1. CONCLUSION: 1. No acute abnormality. 2. Diverticulosis of the colon and duodenum. 3. Prior cholecystectomy. Carotid Artery Ultrasound 01/02/18 0000 Signed Impressions: CONCLUSION: 1. Right Internal Carotid Artery: No evidence of hemodynamically significant s tenosis. 2. Left Internal Carotid Artery: No evidence of hemodynamically significant st enosis. Objective Remarks GENERAL: This is a well-nourished, well-developed patient, in no apparent distress. SKIN: No rashes, ecchymoses or lesions. Well healed scar over abdomen. Warm and dry. HEAD: Atraumatic. Normocephalic. EYES: Pupils equal round. Extraocular motions intact. No scleral icterus. No injection or drainage. ENT: Nose without bleeding, purulent drainage or septal hematoma. Airway patent. NECK: Trachea midline. No JVD or lymphadenopathy. Supple. CARDIOVASCULAR: Regular rate and rhythm without murmurs, gallops, or rubs. RESPIRATORY: Clear to auscultation. Breath sounds equal bilaterally. No wheezes , rales, or rhonchi. GASTROINTESTINAL: Abdomen soft, non-tender, nondistended. No hepato-splenomegaly , or palpable masses. No guarding. MUSCULOSKELETAL: Extremities without clubbing, cyanosis, or edema. No joint tenderness, effusion, or edema noted. No calf tenderness. NEUROLOGICAL/PSYCH: Awake and alert. Non-verbal. Facial expressions symmetrical. Non-cooperative for remaining neurological exam. Medications and IVs Current Medications Medications (Trade) Dose Ordered Sig/Pradeep Route Start Time Stop Time Status Last Admin (Tylenol) 650 mg Q4H PRN PO 01/02/18 19:15 (Tiffany-Colace) 1 tab BID PO 01/02/18 21:00 01/03/18 21:00 (Milk Of Magnesia Liq) 30 ml Q12H PRN PO 01/02/18 19:15 (Senokot) 17.2 mg Q12H PRN PO 01/02/18 19:15 (Stormy Alvarado MD R1) Urinary Catheter: No (Stormy Alvarado MD R1) Vascular Central Line Catheter: No (Stormy Alvarado MD R1) A/P Assessment and Plan Patient is an 82 year old female who presents to the [facility] ED for evaluation of a syncopal episode with loss of consciousness x1. Patient has dementia and has been non-verbal for the past 5 years. Discharge Planning Today pending completion of ECHO. (Stormy Alvarado MD R1) Problem List: (1) Syncope ICD Codes: R55 - Syncope and collapse Status: Acute Plan: Patient with syncopal episode and LOC today. No history of syncopal episodes. No seizure activity. 01/04: Work-up negative. Patient to be discharged today. The need to slow with positional changes discussed with daughter. Differential Diagnosis: * Vaso-vagal versus TIA versus CVA versus seizure Admission Labs: * CBC wnl. * CMP grossly wnl. * Troponin x1 negative. * Salicylates less than 1.7. * Acetaminophen less than 2.0. * Ethyl Alcohol less than 3. Labs 01/04: * CBC wnl. * CMP grossly wnl. Imaging: * Head CT 01/03: Severe atrophy. No acute intracranial findings. Ethmoid and maxillary sinus disease. * MRI Brain 01/03: Severe cortical atrophy with moderate white matter ischemic changes. No recent infarct. Incidental note made of 1.2 cm circumscribed nodule in the left parotid gland. * MRA Brain 01/03: Negative for aneurysm or major branch vessel occlusion. There is poor visualization of the distal MCA branches on the right. Not sure this is artifactual or pathological. * Carotid US 01/02: Right Internal Carotid Artery: No evidence of hemodynamically significant stenosis. Left Internal Carotid Artery: No evidence of hemodynamically significant stenosis. * Chest CXR 01/02: No evidence of acute cardiopulmonary process. * Abdomen/Pelvis CT: No acute abnormality. Diverticulosis of the colon and duodenum. Prior cholecystectomy. Studies: * EKG: Sinus rhythm. * ECHO pending. * EEG: Overall normal appearing, awake, sleep electroencephalogram. Could consider extended electroencephalogram monitoring. Clinical correlation. Orders: * Orthostatic blood pressure. Patient non-cooperative. * Telemetry. * Vital and Neuro checks q4hrs. Consults: * Neurology: Certainly rule out cardiac cause. An echo is still pending. An EEG was just completed. Monitor her on telemetry and watch for any seizures and , if the workup is unremarkable, discharge planning. I would not put her on any antiseizure medicine at this point in time unless we have evidence that this is truly a seizure-like event, which at this point is not sounding like that. Continue current recommendations. Consider putting her on a baby aspirin. (2) Dementia ICD Codes: F03.90 - Unspecified dementia without behavioral disturbance Status: Chronic Plan: Patient with history of dementia. She has been non-verbal for the past 5 years. Patient on no home medications. (3) Fluid, Electrolyte, Nutrition and Prophylaxis Status: Acute Plan: Fluid: * Encourage PO. Electrolyte: * Monitor and replete as necessary. Nutrition: * Heart Healthy Diet: Pureed, nectar thick, lactose free as per Speech. Prophylaxis: * SCDs. (Stormy Alvarado MD R1) Problem List: (1) Syncope ICD Codes: R55 - Syncope and collapse Status: Acute Plan: Patient with syncopal episode and LOC today. No history of syncopal episodes. No seizure activity. 01/04: Work-up negative. Patient to be discharged today. The need to slow with positional changes discussed with daughter. Differential Diagnosis: * Vaso-vagal versus TIA versus CVA versus seizure Admission Labs: * CBC wnl. * CMP grossly wnl. * Troponin x1 negative. * Salicylates less than 1.7. * Acetaminophen less than 2.0. * Ethyl Alcohol less than 3. Labs 01/04: * CBC wnl. * CMP grossly wnl. Imaging: * Head CT 01/03: Severe atrophy. No acute intracranial findings. Ethmoid and maxillary sinus disease. * MRI Brain 01/03: Severe cortical atrophy with moderate white matter ischemic changes. No recent infarct. Incidental note made of 1.2 cm circumscribed nodule in the left parotid gland. * MRA Brain 01/03: Negative for aneurysm or major branch vessel occlusion. There is poor visualization of the distal MCA branches on the right. Not sure this is artifactual or pathological. * Carotid US 01/02: Right Internal Carotid Artery: No evidence of hemodynamically significant stenosis. Left Internal Carotid Artery: No evidence of hemodynamically significant stenosis. * Chest CXR 01/02: No evidence of acute cardiopulmonary process. * Abdomen/Pelvis CT: No acute abnormality. Diverticulosis of the colon and duodenum. Prior cholecystectomy. Studies: * EKG: Sinus rhythm. * ECHO pending. * EEG: Overall normal appearing, awake, sleep electroencephalogram. Could consider extended electroencephalogram monitoring. Clinical correlation. Orders: * Orthostatic blood pressure. Patient non-cooperative. * Telemetry. * Vital and Neuro checks q4hrs. Consults: * Neurology: Certainly rule out cardiac cause. An echo is still pending. An EEG was just completed. Monitor her on telemetry and watch for any seizures and , if the workup is unremarkable, discharge planning. I would not put her on any antiseizure medicine at this point in time unless we have evidence that this is truly a seizure-like event, which at this point is not sounding like that. Continue current recommendations. Consider putting her on a baby aspirin. (2) Dementia ICD Codes: F03.90 - Unspecified dementia without behavioral disturbance Status: Chronic Plan: Patient with history of dementia. She has been non-verbal for the past 5 years. Patient on no home medications. (3) Fluid, Electrolyte, Nutrition and Prophylaxis Status: Acute Plan: Fluid: * Encourage PO. Electrolyte: * Monitor and replete as necessary. Nutrition: * Heart Healthy Diet: Pureed, nectar thick, lactose free as per Speech. Prophylaxis: * SCDs. See the residents documentation for details. I saw and evaluated the patient regarding the martinez portions of this evaluation and agree with the residents findings and plans as written. Parts of this note were created using [employer] voice recognition software program. While efforts were made to correct any mistakes made by this software, some mistakes, errors, and omissions may remain in the final note that were not caught when the note was originally created. Plan of care was discussed and agreed upon with the patient as specifically documented in the above note. An opportunity to ask questions with explanation was provided. Patient voiced understanding on all information reviewed and discussed. (Arcenio Ignacio MD) Stormy Alvarado MD R1 Jan 04, 2018 11:04 Arcenio Ignacio MD Jan 04, 2018 12:21
[2018-01-04] MEDS ORDERED: ASPI81CH6 CHEW (11:22)
--- NOTE | 2018-01-04 11:23 | HHI.DS ---
Discharge Summary Admission Date Jan 02, 2018 at 17:55 Discharge Date: Jan 04, 2018 Admitting Diagnosis Syncope (1) Syncope Diagnosis: Principal Plan: Patient with syncopal episode and LOC today. No history of syncopal episodes. No seizure activity. 01/04: Work-up negative. Patient to be discharged today. The need to slow with positional changes discussed with daughter. Differential Diagnosis: * Vaso-vagal versus TIA versus CVA versus seizure Admission Labs: * CBC wnl. * CMP grossly wnl. * Troponin x1 negative. * Salicylates less than 1.7. * Acetaminophen less than 2.0. * Ethyl Alcohol less than 3. Labs 01/04: * CBC wnl. * CMP grossly wnl. Imaging: * Head CT 01/03: Severe atrophy. No acute intracranial findings. Ethmoid and maxillary sinus disease. * MRI Brain 01/03: Severe cortical atrophy with moderate white matter ischemic changes. No recent infarct. Incidental note made of 1.2 cm circumscribed nodule in the left parotid gland. * MRA Brain 01/03: Negative for aneurysm or major branch vessel occlusion. There is poor visualization of the distal MCA branches on the right. Not sure this is artifactual or pathological. * Carotid US 01/02: Right Internal Carotid Artery: No evidence of hemodynamically significant stenosis. Left Internal Carotid Artery: No evidence of hemodynamically significant stenosis. * Chest CXR 01/02: No evidence of acute cardiopulmonary process. * Abdomen/Pelvis CT: No acute abnormality. Diverticulosis of the colon and duodenum. Prior cholecystectomy. Studies: * EKG: Sinus rhythm. * ECHO pending. * EEG: Overall normal appearing, awake, sleep electroencephalogram. Could consider extended electroencephalogram monitoring. Clinical correlation. Orders: * Orthostatic blood pressure. Patient non-cooperative. * Telemetry. * Vital and Neuro checks q4hrs. Consults: * Neurology: Certainly rule out cardiac cause. An echo is still pending. An EEG was just completed. Monitor her on telemetry and watch for any seizures and , if the workup is unremarkable, discharge planning. I would not put her on any antiseizure medicine at this point in time unless we have evidence that this is truly a seizure-like event, which at this point is not sounding like that. Continue current recommendations. Consider putting her on a baby aspirin. ICD Codes: R55 - Syncope and collapse Status: Acute (2) Dementia Diagnosis: Secondary Plan: Patient with history of dementia. She has been non-verbal for the past 5 years. Patient on no home medications. ICD Codes: F03.90 - Unspecified dementia without behavioral disturbance Status: Chronic (3) Fluid, Electrolyte, Nutrition and Prophylaxis Diagnosis: Principal Plan: Fluid: * Encourage PO. Electrolyte: * Monitor and replete as necessary. Nutrition: * Heart Healthy Diet: Pureed, nectar thick, lactose free as per Speech. Prophylaxis: * SCDs. Status: Acute Brief History Patient is an 82 year old female who presents to the [facility] ED for evaluation of a syncopal episode with loss of consciousness x1. Patient has dementia and has been non-verbal for the past 5 years. She is cared for by her daughter, who is at bedside to provide the history. At approximately 9:40 a.m. today, the patient was eating breakfast on the couch. The daughter turned her back on the patient, heard the patient's plate drop to the floor, the daughter turned back around and found her mother laying on the couch slouched to the side. She then noted her mother's eyes rolling into the back of her head, followed by the patient "fainting." Per daughter, the patient lost consciousness for 2 minutes. When she woke up she seemed disoriented. Daughter denies seizure like activity such as shaking. She denies tongue biting. Patient has urinary and bowel incontinence at baseline but her diaper was soiled following episode. The patient also started coughing and has had little energy following the episode. The cough is non-productive. She usually "runs around the entire house" but today she just wanted to lay and rest. "She is just not acting herself." Patient has been shivering today. Her highest recorded temperature since arrival in ED is 99.9F. Daughter denies sick contacts. Of note, patient was diagnosed with dementia at 55 years old. She has been non- verbal for the past five years. She communicates via "her facial expressions." Patient eats "mushy food only." CBC/BMP: 01/04/18 0437 01/04/18 0437 Significant Findings Laboratory Tests Test 01/02/18 13:30 01/02/18 13:35 01/03/18 04:12 01/03/18 04:20 Monocytes (%) (Auto) 9.8 % (0.0-8.0) 11.7 % (0.0-8.0) Albumin 3.3 GM/DL (3.4-5.0) Calcium Level 8.3 MG/DL (8.5-10.1) 8.2 MG/DL (8.5-10.1) Chloride Level 109 MEQ/L (98-107) 111 MEQ/L (98-107) Estimat Glomerular Filtration Rate 65 ML/MIN (>89) 82 ML/MIN (>89) Troponin I LESS THAN 0.02 NG/ML Urine Occult Blood SMALL (NEG) Urine Mucus FEW /lpf (OCC) Monocytes # (Auto) 1.2 TH/MM3 (0-0.9) Random Glucose 64 MG/DL (74-106) Carbon Dioxide Level 19.1 MEQ/L (21.0-32.0) Salicylates Level LESS THAN 1.7 MG/DL Acetaminophen Level LESS THAN 2.0 MCG/ML Test 01/04/18 04:37 Calcium Level 8.3 MG/DL (8.5-10.1) Sodium Level 146 MEQ/L (136-145) Chloride Level 112 MEQ/L (98-107) Estimat Glomerular Filtration Rate 77 ML/MIN (>89) PE at Discharge GENERAL: This is a well-nourished, well-developed patient, in no apparent distress. SKIN: No rashes, ecchymoses or lesions. Well healed scar over abdomen. Warm and dry. HEAD: Atraumatic. Normocephalic. EYES: Pupils equal round. Extraocular motions intact. No scleral icterus. No injection or drainage. ENT: Nose without bleeding, purulent drainage or septal hematoma. Airway patent. NECK: Trachea midline. No JVD or lymphadenopathy. Supple. CARDIOVASCULAR: Regular rate and rhythm without murmurs, gallops, or rubs. RESPIRATORY: Clear to auscultation. Breath sounds equal bilaterally. No wheezes , rales, or rhonchi. GASTROINTESTINAL: Abdomen soft, non-tender, nondistended. No hepato-splenomegaly , or palpable masses. No guarding. MUSCULOSKELETAL: Extremities without clubbing, cyanosis, or edema. No joint tenderness, effusion, or edema noted. No calf tenderness. NEUROLOGICAL/PSYCH: Awake and alert. Non-verbal. Facial expressions symmetrical. Non-cooperative for remaining neurological exam. Hospital Course Patient was admitted for syncopal episode. Due to vague history, patient was evaluated for possible stroke versus seizure. Head CT, MRI brain, MRA brain, and carotid ultrasound: Negative for acute process as above. EEG showed normal appearing, awake electroencephalogram. Initial troponin negative with no acute EKG changes. Orthostatic blood pressures were unable to be obtained due to patient being noncooperative. Neurology was consulted and recommends baby aspirin at this time. Physical therapy evaluated patient who recommended discharge home without physical therapy. Speech study completed who recommended pured, nectar thick liquids. Discussed this with patient's care provider. Patient to be discharged on 01/04/18 pending completion of echocardiogram. Patient follow-up with primary care provider in 3-5 days. Pt Condition on Discharge: Stable Discharge Disposition: Discharge Home Discharge Instructions DIET: Follow Instructions for: Heart Healthy Diet Speech Therapy-Diet Recommends: Pureed, [place] Thickened Liquids Activities you can perform: Regular-No Restrictions Follow up Referrals: PCP Follow-up - 3-5 Days New Medications: Aspirin (Aspirin Low Dose) 81 Mg Chew 81 MG CHEW DAILY, #30 TAB 0 Refills Jourdan Delaney MD R2 Jan 04, 2018 11:23
[2018-01-04] MEDS ORDERED: ASPIRIN 325 MG TAB PO ONE (12:15)
--- NOTE | 2018-01-04 20:09 | ECHRPT ---
Indication: CVA/TIA CONCLUSIONS The left ventricular systolic function is normal with an estimated ejection fraction in the range of 55-60%. Doppler parameters are consistent with impaired left ventricular relaxtion (grade 1 diastolic dysfun ction). A patent foramen ovale is present with a [id number] shunt demonstrated by color flow Doppler interrogation. Imqhe-dx-[id number] mitral valve regurgitation. There is trace tricuspid valve regurgitation. BP: 121 / 60 HR: 65 Rhythm: Sinus MEASUREMENTS (Male / Female) Normal Values Technical Quality:Fair 2D ECHO LV Diastolic Diameter PLAX 4.7 cm 4.2 - 5.9 / 3.9 - 5.3 cm LV Systolic Diameter PLAX 3.0 cm IVS Diastolic Thickness 0.8 cm 0.6 - 1.0 / 0.6 - 0.9 cm LVPW Diastolic Thickness 1.0 cm 0.6 - 1.0 / 0.6 - 0.9 cm LV Relative Wall Thickness 0.4 RV Internal Dim ED PLAX 1.4 cm LVOT Diameter 1.9 cm Aortic Root Diameter 2.7 cm M-MODE AV Cusp Separation MM 1.7 cm DOPPLER AV Peak Velocity 160.0 cm/s AV Peak Gradient 10.2 mmHg AV Mean Gradient 5.0 mmHg AV Velocity Time Integral 31.5 cm LVOT Peak Velocity 63.9 cm/s LVOT Peak Gradient 1.6 mmHg LVOT Velocity Time Integral 12.4 cm AV Area Cont Eq vti 1.1 cm AV Area Cont Eq pk 1.1 cm Mitral E Point Velocity 78.5 cm/s Mitral A Point Velocity 98.2 cm/s Mitral E to A Ratio 0.8 LV E' Lateral Velocity 7.4 cm/s Mitral E to LV E' Lateral Ratio 10.6 LV E' Septal Velocity 5.3 cm/s Mitral E to LV E' Septal Ratio 14.9 TR Peak Velocity 213.0 cm/s TR Peak Gradient 18.1 mmHg Right Atrial Pressure 10.0 mmHg Pulmonary Artery Systolic Pressu 28.1 mmHg Right Ventricular Systolic Press 28.1 mmHg PV Peak Velocity 79.7 cm/s PV Peak Gradient 2.5 mmHg FINDINGS LEFT VENTRICLE Normal left ventricular size. Wall thickness is normal. The left ventricular systolic function is normal with an estimated ejection fraction in the range of 55-60%. Doppler parameters are consistent with impaired left ventricular relaxtion (grade 1 diastolic dysfun ction). RIGHT VENTRICLE Normal right ventricular size and systolic function. LEFT ATRIUM The left atrial size is normal. RIGHT ATRIUM The right atrial size is normal. ATRIAL SEPTUM A patent foramen ovale is present with a [id number] shunt demonstrated by color flow Doppler interrogation. AORTA The aortic root and proximal ascending aorta are normal in size on limited imaging. MITRAL VALVE Grossly normal No mitral valve stenosis. [id number] mitral valve regurgitation. AORTIC VALVE Grossly normal. No aortic valve stenosis or regurgitation. TRICUSPID VALVE Grossly normal There is trace tricuspid valve regurgitation. The estimated pulmonary arterial pressure is 28.1 mmHg. PULMONARY VALVE No pulmonary valve regurgitation or stenosis. VESSELS The inferior vena cava is normal in size. PERICARDIUM No pericardial effusion. Pablo Gamboa DO (Electronically Signed) Final Date:04 January 2018 20:09
== END 2018-01-04 18:27 | disposition home or self-care (01) ==
LOC: NEPC 11:37 → NEDA 17:55 → N04B 18:53
PROVIDERS: ADMIT Family Medicine; ATTEND Family Medicine
DX: R55 Syncope and collapse (principal); F02.80 Dementia in other diseases classified elsewhere, unspecified severity, without behavioral disturbance, psychotic disturbance, mood disturbance, and anxiety; R32 Unspecified urinary incontinence; G30.9 Alzheimer's disease, unspecified; J32.0 Chronic maxillary sinusitis; K57.30 Diverticulosis of large intestine without perforation or abscess without bleeding; Z80.3 Family history of malignant neoplasm of breast; Z82.0 Family history of epilepsy and other diseases of the nervous system; Z86.73 Personal history of transient ischemic attack (TIA), and cerebral infarction without residual deficits; Z87.891 Personal history of nicotine dependence; Z90.710 Acquired absence of both cervix and uterus; Z90.49 Acquired absence of other specified parts of digestive tract
CPT/HCPCS: 70450; 70544; 70553; 71045; 74177; 80048; 80053; 80307; 81001; 82550; 83605; 83690; 83735; 84484; 85025; 85027; 87040; 92526; 92610; 93005; 93306; 93880; 95819; 96360; 96361; 97110; 97116; 97162; 99285; A9579; G0378; G8996; G8997; J7030; Q9967